=== PATIENT | male | born 1950 | race Caucasian/White ===

== ENCOUNTER → 2017-04-21 | Outpatient (CLI) | payer MEDICARE, OTHER ==
[~2017-04-21] MED LIST: BRILINTA90 MG PO; BUMETANIDE2 MG PO; CHLORTHALIDONE25 MG PO; CIPRO500 MG PO; DRISDOL 5050000 UNIT PO; FER-IRON DRO15 MG/ML PO; FLOMAX0.4 MG PO; JANUVIA 100 MG100 MG PO; LASIX40 MG PO; LEVEMIR FL100 UNIT/1 SUB-Q; LIPITOR40 MG PO; LOPRESSOR25 MG PO; MELATIN3 MG PO; MILK OF MA400 MG/5 M PO; MIRALAX17 GM PO; NITROSTAT0.4 MG SL; NORVASC10 MG PO; NOVOLIN-R100 UNIT/M SUB-Q; PLAVIX75 MG PO; POTASSIUM CHLO10 MEQ PO; PRINIVIL OR ZES10 MG PO; TUMS REGULAR ST1 TAB PO; TYLENOL325 MG PO; ZAROXOLYN5 MG PO
--- NOTE | ~2017-04-21 | ENPV ---
Carotid Duplex Study Demographics Patient Name JORGE L TALLEY Date of Study 04/21/2017 Patient Number [id number] Gender Male Date of 1950 Age 67 Visit Number [id number] Height Weight Number Room Number BSA BMI Referring Brandon Beltran MD Physician Physician Physician Ordering Flores [employer] Digital Sales Physician Giovanna MADDEN Psychiatric Clinical Nurse Specialist [facility], [facility] Conclusions Summary The right internal carotid artery has mild, 1-39%, plaque and stenosis. The left internal carotid artery has mild, 1-39%, plaque and stenosis. The bilateral vertebral arteries are patent and antegrade. The bilateral subclavian arteries are patent and biphasic. Procedure Type of Study: Cerebral:Carotid, Carotid Doppler Bilateral. Indications for Study:Pre op heart valve surgery. Appropriate Use Criteria:4 Allergies - Other:(BRENDEN Inhibitors.). Blood Pressure:Right arm 123/59 mmHg.Left arm 118/56 mmHg. Patient Status:Routine. Study Location:Vascular Lab. Technical Quality:Adequate visualization. Velocities are measured in cm/s ; Diameters are measured in cm Carotid Right Measurements Carotid Left Measurements + +--------+--------+ + + + +--------+ --------+ + + !Location !PSV !EDV !Angle !%Stenosis ! !Location !PSV ! EDV !Angle !%Stenosis ! + +--------+--------+ + + + +--------+ --------+ + + !Prox CCA !96 !24 !50 ! ! !Prox CCA !116 ! 29 !60 ! ! + +--------+--------+ + + + +--------+ --------+ + + !Dist CCA !89 !19 !60 ! ! !Dist CCA !110 ! 26 !58 ! ! + +--------+--------+ + + + +--------+ --------+ + + !Prox ICA !82 !17 !54 ! ! !Prox ICA !80 ! 26 !52 ! ! + +--------+--------+ + + + +--------+ --------+ + + !Dist ICA !64 !21 !58 ! ! !Dist ICA !74 ! 30 !52 ! ! + +--------+--------+ + + + +--------+ --------+ + + !Prox ECA !72 ! !42 ! ! !Prox ECA !98 ! 15 !52 ! ! + +--------+--------+ + + + +--------+ --------+ + + !Vertebral !73 ! !60 ! ! !Vertebral !33 ! !60 ! ! + +--------+--------+ + + + +--------+ --------+ + + !Subclavian !143 ! !54 ! ! !Subclavian !139 ! !58 ! ! + +--------+--------+ + + + +--------+ --------+ + + - Add'l Measurements:ICAPSV/CCAPSV 0.85.ICAEDV/CCAEDV 0.88. - Add'l Measurements:ICAPS V/CCAPSV 0.69.ICAEDV/CCAEDV 1.03. Signature dtt: BRIAN OKEEFE: 04/21/17 1448 Physician Self Edit
--- NOTE | ~2017-04-21 | PUL ---
PATIENT'S NAME: JORGE L TALLEY [facility] AGE: 67 Y [address] ROOM: [place] [address] LOCATION: [facility] ADMIT DATE: 04/21/2017 Pulmonary DISCHARGE DATE: FAMILY PHYSICIAN: Blake Taylor MD ATTENDING PHYSICIAN: BERTA ZAVALA NAME OF PROCEDURE: Pulmonary Function Test DATE OF PROCEDURE: April 21, 2017 TECH: AMINA Lopez REASON FOR EXAM: Aortic stenosis RESULTS: 1. Spirometry does not demonstrate airflow obstruction. There is no significant change post bronchodilator. 2. Diffusing capacity is mildly reduced but normal when adjusted for hemoglobin. 3. Lung volumes are normal. IVAN NINO MD /[id number] dtt: 05/09/17 0827 , Ivan Nino dtd: 04/25/17 1522
[2017-04-21 14:24] LABS: BICARBONATE 32.8 mmol/L (18.0-23.0); PCO2 44 mmHg (35-45); PO2 69 mmHg (80-90)
== END | disposition disaster alternative care site (69) ==
LOC: GRTH 12:32
PROVIDERS: Internal Medicine Interventional Cardiology
DX: I35.0 Nonrheumatic aortic (valve) stenosis (principal); I65.23 Occlusion and stenosis of bilateral carotid arteries

== ENCOUNTER 2017-04-28 05:40 | Inpatient (IN) | payer MEDICARE, OTHER ==
[~2017-04-28] VITALS: Ht 177.8 cm; Wt 118.7 kg
--- NOTE | ~2017-04-28 | CON ---
PATIENT'S NAME: JORGE L TALLEY [facility] AGE: 67 Y [address] ROOM: [address] [place], [place] [address] LOCATION: [facility]PCU ADMIT DATE: 04/28/2017 Consultation DISCHARGE DATE: 05/11/2017 FAMILY PHYSICIAN: Blake Taylor MD ATTENDING PHYSICIAN: Christiane Doss CORRECTED PATIENT ACCOUNT INFORMATION 05/19/2017 AO DATE OF CONSULTATION: 05/03/2017 REFERRING PHYSICIAN: REGGIE VEGA REFERRING PROVIDER: Ilda Dooley MD. REASON FOR CONSULTATION: Anemia. HISTORY OF PRESENT ILLNESS: This is a very pleasant 67-year-old gentleman, who was admitted on April 28, 2017. At that time, the patient was being evaluated and worked up for possible valve replacement per Cardiology for severe aortic stenosis. The patient was noted to have elevated creatinine and calcium with a creatinine level of 2.4 and calcium of 13.2. The patient was admitted for further evaluation. The patient's workup, the patient was found to have severe iron deficiency anemia. The patient's hemoglobin was 8.5, MCV was 68.1, hematocrit was 29.4, iron was 24, and TIBC was 397, and percent saturation of 6. The patient denies any evidence of known blood loss per his statement. He denies any hematemesis, bright red blood per rectum, or melena. 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 He did recall having a colonoscopy done 7 to 10 years ago and states that there was "beginning of polyps." He denies any history of upper endoscopy. The patient does state that at home he denied any abdominal pain, or chest pain or chest pressure. He does complain of some nausea. He also states that he has "heartburn" and takes "equate brand antireflux medicine at home." He also admits to taking numerous Tums per day. He currently denies any chest pain, chest pressure, shortness of breath, fever, chills, night sweats, or weight loss. PAST MEDICAL HISTORY: Hypertension, diabetes mellitus type 2, diastolic heart failure, coronary artery disease, peripheral vascular disease, and severe aortic stenosis. PAST SURGICAL HISTORY: Right BKA, appendectomy, tonsillectomy, and cholecystectomy. SOCIAL HISTORY: History of tobacco use with last cigarette 6 years ago. He seldom drinks and PATIENT'S NAME: JORGE L TALLEY [facility] AGE: 67 Y [address] 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 He denies any illicit drug use. FAMILY HISTORY: The patient's father from suicide and had depression. The patient's mother had brain aneurysm. ALLERGIES: BRENDEN INHIBITORS CAUSE SHORTNESS OF BREATH AND COUGH. CURRENT MEDICATIONS: Please refer to the medication administration record, significant for Plavix. REVIEW OF SYSTEMS: All point review of systems was completed. All were negative except for those identified in the History of Present Illness. PHYSICAL EXAMINATION: GENERAL: A very pleasant 67-year-old gentleman lying in bed, who appears to be in no acute distress. VITAL SIGNS: Temperature 100.5, pulse of 96, respirations of 18, blood pressure 119/57, and oxygen saturation is 96% on 2 L nasal cannula. SKIN: [place], warm, and dry. No jaundice. HEENT: Head is normocephalic and atraumatic. Pupils are equal, round, and reactive to light. Sclerae are clear, nonicteric. Oral mucosa is pink and moist. No thyromegaly. NECK: Soft and supple. CARDIOVASCULAR: Grade 2 systolic murmur heard on the right. ABDOMEN: Soft, nontender, and nondistended. Bowel sounds positive x4 quadrants. MUSCULOSKELETAL: No muscle weakness or atrophy. EXTREMITIES: No clubbing, cyanosis, or edema. Noted right BKA and some left venous stasis changing to the left lower extremity. NEUROLOGICAL: Grossly nonfocal. LABS AND DIAGNOSTICS: White blood cell count of 13.3, hemoglobin of 8.5, hematocrit of 29.4, MCV 68.1, and platelets of 202. Chemistry panel includes a glucose of 147, BUN of 18, creatinine 1.5, sodium 142, potassium of 3.3, chloride 106, and CO2 of 26. Iron of 24, TIBC of 397, and percent saturation of 6. Vitamin B12 at 320, folate of 19.7, ferritin low at 8.50, and TSH was 0.888. ASSESSMENT AND PLAN: Again, this is a very pleasant 67-year-old gentleman who was admitted with hypercalcemia as well as acute kidney injury discovered while undergoing workup for possible valve replacement for severe aortic stenosis. We were PATIENT'S NAME: JORGE L TALLEY [facility] AGE: 67 Y [address] ROOM: [place] [address] LOCATION: GPCU ADMIT DATE: 04/28/2017 Consultation DISCHARGE DATE: 05/11/2017 FAMILY PHYSICIAN: Blake Taylor MD ATTENDING PHYSICIAN: Christiane Doss asked to see in consultation for iron deficiency anemia. The patient also thought to have possible monoclonal gammopathy as the GI tract needs to be evaluated at this time. It was discussed with Dr. Ilda Dooley as well as Dr. Heredia from Cardiology, and we will go forth with an upper endoscopy and colonoscopy. The patient is on Plavix as this was discussed with the patient that if large polyps are seen, a possible repeat procedure may be completed to remove these as this will be more of diagnostic only. The patient will be given Suprep in preparation for the procedure. Procedures, risks, benefits, and alternatives were discussed with the patient per Dr. Fanta Reeves. Further recommendations to be given status post upper endoscopy and colonoscopy. CHARLA MELVIN, SUPERVISOR PRESSING DEPARTMENT FOR [employer] MD MMF/modl /[id number] CORRECTED PATIENT ACCOUNT INFORMATION 05/19/2017 AO d: 05/04/17 1201 t: 05/19/17 1419, CONSULTATION REPORT
--- NOTE | ~2017-04-28 | ECHO ---
Transesophageal Echocardiography Report (JAYME) Demographics Patient Name JORGE L TALLEY Date of Study 04/28/2017 Patient Number [id number] Visit Number [id number] Date of 1950 Room Number G6306 Gender Male Number Age 67 year(s) Referring Brandon Kohli MD Burnishing Machine Operator Adelita Guo [facility], Physician Flores Heredia RVT Physician Interpreting Flores Heredia Forensic Computer Examiner Physician MD Supervising Ordering Flores Heredia MD/MLP Physician MD Nurse Stress Development Manager Conclusions Summary Normal LV/RV size and systolic function. LVEF 55-60%. There is severe aortic stenosis, AV is severely calcific with restricted opening. There is mild aortic regurgitation by color Doppler. The aorta measures 3.6 cms at the level of sinuses and 2.[address] junction. LVOT measures about 2.6 cms. Procedure Type of Study JAYME procedure Procedure Date Date: 04/28/2017 Start: 07:05 AM Study Location: Inpatient Portable Technical Quality: Adequate visualization Indications:Aortic stenosis. Appropriate Use Criteria: 9 Patient Status: Routine HR: 87 bpm BP: 95/50 mmHg O2 Saturation: 94 % JAYME Performed By: the attending and the drawing kiln operator Type of Anesthesia: Moderate sedation Allergies - Other:(BRENDEN Inhibitors.). Findings Left Ventricle The left ventricle is normal in size . Mild concentric hypertrophy. Right Ventricle Normal right ventricular size and function. Left Atrium The left atrium is mildly dilated. There is no thrombus in the left atrial appendage. There is no evidence of patent foramen ovale or atrial septal defect by color Doppler. Right Atrium The right atrium is not dilated. Mitral Valve Normal mitral valve structure and function. Mild mitral regurgitation by color Doppler. Aortic Valve There is severe aortic stenosis, AV is severely calcific with restricted opening. There is mild aortic regurgitation by color Doppler. The aorta measures 3.6 cms at the level of sinuses and 2.[address] junction. LVOT measures about 2.6 cms. Tricuspid Valve Normal appearing tricuspid valve. Pulmonic Valve Normal pulmonic valve structure and function. 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 Contractility Score LV regional wall motion:(0-Non visualized 1-Normal 2-Hypokinesis 3-Akinesis 4-Dyskinesis 5-Aneurysm) Signature dtt: BERTA ZAVALA dtd: 04/28/17 0705 Physician Self Edit
--- NOTE | ~2017-04-28 | CATH ---
Cardiac Diagnostic Report Demographics Patient Name GERRI Arredondo Gender Male Date of 1950 Age 67 year(s) Patient Number [id number] Date of Study 05/01/2017 Visit Number [id number] Room Number G6[address] [place] [id number] Ht 177.8 cm Wt 110 kg Referring Brandon Kohli MD Primary Physician Physician Performing [facility] Secondary Physician Physician Giovanna MADDEN Diagnostic [facility] Assisting Physician Physician Giovanna MADDEN Interventional Physician Audit Intern Physician Findings and Conclusions Diagnostic Findings and Conclusion 1. Mild non-obstructive CAD. 2. Mid LAD stent patent. Diagnostic Recommendations Pigtail in distal aorta for CTA pelvis for TAVR workup. Continue medical therapy while awaiting TAVR. Will discuss case at [facility]. Patient will be observed overnight. Hydration and followup creatinine. Patient has been instructed to not lift anything more than 5 pounds for 1 week. Recommend aggressive risk factor modification. Aggressive medical therapy for coronary artery disease. Procedure Description The patient was brought to the diagnostic cardiac catheterization-EP laboratory in the fasting, non-sedated state. Informed consent was obtained in the written and verbal form after the risks and benefits were explained. The patient had no further questions and agreed to proceed. The planned puncture-incision site(s) were shaved and prepped with ChloraPrep and draped in the usual sterile manner. Conscious sedation, supplemental oxygen, and pain control medications were delivered by a registered nurse under physician guidance. Surface ECG rhythm, blood pressure measurement, and pulse oximetry were monitored throughout the procedure. Arterial access. The access site was infiltrated with lidocaine. The vessel was entered with the Seldinger technique. A sheath was advanced into the vessel and used for catheter placement. Selective left coronary angiography. A catheter was advanced into the left coronary vessel ostium under Fluoroscopic guidance. Contrast was injected by hand. Images were obtained in multiple projections. Selective right coronary angiography. A catheter was advanced into the right coronary vessel ostium under fluoroscopic guidance. Contrast was injected by hand. Images were obtained in multiple projections. Arterial artery hemostasis was achieved. The patient was transferred to a regular nursing floor via cart accompanied by a nurse. The patient left the laboratory in stable condition. Diagnostic Cath Status: Urgent Procedure Procedure Type Diagnostic procedure:Angiography:, Coronary Angios Indications: Non-ST elevation TN. The procedure was explained in detail to the patient. Risks, complications and alternative treatments were reviewed. Written consent was obtained. Medications Reviewed with Patient prior to Procedure. Angiographic Findings Dominance: Right Cardiac Arteries and Lesion Findings LMCA: Normal (0% Stenosis). LAD: There is a previous stent on Mid LAD Mid subsection. Lesion on Mid LAD: 10% stenosis . The lesion was previously treated on 04/30/2014 with the following techniques: drug eluting stent. This is in-stentrestenosis. Lesion on Prox LAD: Ostial.30% stenosis . LCx: Lesion on Prox CX: Ostial.30% stenosis . Lesion on Mid CX: 20% stenosis . Lesion on 1st Ob Kristy% stenosis . RCA: Lesion on Prox RCA: 20% stenosis . Coronary Tree Procedure Data Procedure Date Date: 05/01/2017Start: 12:24 PMEnd: 12:39 PM Entry Locations - Percutaneous access was performed through the Radial artery. Hemostasis was successfully obtained using Mechanical Compression. Closure Comments: R band to be deployed after CT by SHAHANA Angela.. Procedure Medications Order and Administration + + + +-------+ !Time !Medication !Dosage !Route ! + + + +-------+ !05/01/2017 12:07 PM !Versed !1 mg !I.V. ! + + + +-------+ !05/01/2017 12:08 PM !Fentanyl !25 mcg !I.V. ! + + + +-------+ !05/01/2017 12:08 PM !Oxygen !2 l/min !NC ! + + + +-------+ !05/01/2017 12:15 PM !Oxygen !4 l/min !NC ! + + + +-------+ !05/01/2017 12:26 PM !Radial Verapamil !2.5 mg !I.A. ! + + + +-------+ !05/01/2017 12:27 PM !Heparin (ACC_3) !5000 units !I.V. ! + + + +-------+ Devices Used - A5 Fr. BS JR 4 Diag. Catheterwas used for:Right coronary angiography. - A5 Fr. BS JL 3.5 Diag. Catheterwas used for:Left coronary angiography. Contrast Material - Isovue 38683 ml Fluoroscopy Time: Diagnostic: 4:12 minutes. Total: 4:12 minutes. Fluoroscopy Dose: Diagnostic: 600 mGy. Total: 600 mGy. Estimated Blood Loss: 10 ml. Medical History Performed Procedures and Imaging Results - No ACC stress or imaging studies were performed. Allergies - Other:(BRENDEN Inhibitors.). - Other:(BRENDEN Inhibitors). Risk Factors The patient risk factors include:prior PCI on 04/30/2014;hypertension, insulin-treated diabetes mellitus, last creatinine: 1.3 mg/dl, creatinine clearance: 83.44 ml/min, Current/Recent(w/in 1 year) tobacco use, prior heart failure and prior TN . Admission Data Admission Date: 04/28/2017 Admission Time: 01:30 PM Admit Source: Emergency department Insurance Payors: Medicare. Admission Medications + +------+-----+---------+---------+ + + !Medication !Dosage!Times!Last !Last !Administered !Comments ! ! ! !Per !Delivery !Delivery ! ! ! ! ! !Day !Date !Time ! ! ! + +------+-----+---------+---------+ + + !Aspirin (any) ! ! ! ! !Yes ! ! + +------+-----+---------+---------+ + + !Statin (any) ! ! ! ! !Yes ! ! + +------+-----+---------+---------+ + + !Clopidogrel ! ! ! ! !Yes ! ! + +------+-----+---------+---------+ + + !Unfractionated ! ! ! ! !Yes ! ! !Heparin (any) ! ! ! ! ! ! ! + +------+-----+---------+---------+ + + !Beta Jaleesa ! ! ! ! !Yes ! ! !(any) ! ! ! ! ! ! ! + +------+-----+---------+---------+ + + Clinical Evaluation Leading to Procedure - The patient's CAD presentation was assessed as: Non-STEMI. - The patient's anginal syndrome during the past two weeks was assessed as: Class IV according to the [place] Cardiovascular Society Classification System (CCS). Anti-anginal medications were prescribed during the past two weeks. The medications are: Beta Blockers and Ca channel Blockers. - The patient has been in a state of heart failure within the past two weeks. Hemodynamics Condition: Rest O2 Consumption: Estimated: 217.99Heart Rate: 17 bpm Pressures (mmHg) +-----+ + !Site !Pressure ! +-----+ + !AO !115/60 (83) ! +-----+ + Shunts Oxygen Values O2 Capacity 114.24 O2 Consumption 217.99 Signatures dtt: GIOVANNA ZAVALA dtd: 05/01/17 1224 Physician Self Edit
--- NOTE | ~2017-04-28 | CON ---
PATIENT'S NAME: JORGE L TALLEY [facility] AGE: 67 Y [address] ROOM: [address] [address] LOCATION: GPCU ADMIT DATE: 04/28/2017 Consultation DISCHARGE DATE: FAMILY PHYSICIAN: Blake Taylor MD ATTENDING PHYSICIAN: BERTA ZAVALA REFERRING PHYSICIAN: REGGIE MAE This is a consultation to Dr. Doss. HISTORY OF PRESENT ILLNESS: Jorge L Talley is a 67-year-old man with an uncharacterized iron-deficiency anemia, hypercalcemia, and elevated kappa/lambda ratio, who needs coronary artery catheterization and a left heart catheterization to evaluate aortic stenosis prior to a TAVR. The history of the present illness is from Mr. Talley, who is a fair historian; from review of the old and current [facility] chart; from Dr. Doss; and visits with colleagues. There may be some lacuna in my knowledge. Mr. Talley saw Dr. Galvan a month ago. It was a regular checkup. An echocardiogram was performed. Critical aortic stenosis was documented. Arrangements were made for performance of a coronary artery catheterization and a left heart catheterization. This blood work was drawn on 04/28/2017. To universal surprise and consternation, anemia and marked hypercalcemia were present. The INR was 0.99. The PTT was 22. The white count was 10,900 with 71% neutrophils, the hemoglobin was 9.8, the MCV was 69, and the platelets were 270,000. The CMS revealed the calcium was 13.2 mg/dL. The albumin was 3.3 g/dL. The globulin was normal at 3.8 g/dL. The glucose was 155 mg/dL. The EGFR was 27. The BUN was 55 mg/dL. The creatinine was 2.4 mg/dL. The patient was hospitalized and Dr. Mae was consulted. Dr. Mae discontinued the chlorthalidone and administered normal saline hydration. No other measures were employed to treat the hypercalcemia. The patient's calcium fell rapidly after chlorthalidone was discontinued and hydration was instituted and the calcium is currently 7.9 g/dL. The estimated GFR is currently 55 mL/m and elaine to 60 at one point. Laboratory was forwarded. A kappa free light chain level was 11.3 mg/dL. The lambda free light chain level was 2.24 mg/dL and a kappa/lambda ratio was elevated at 5. A serum protein electrophoresis revealed hypoalbuminemia. A spot urine protein electrophoresis, 24-hour urine protein electrophoresis, and 24-hour urine immunofixation electrophoresis are pending. A 25-hydroxy vitamin D level is 12 ng/mL. Tissue transglutaminase levels are pending. The ferritin was 8.5 ng/mL. The iron was 24 ug/dL, the TIBC 397 ug/dL, and the percentage saturation 6%. The IgA level was slightly elevated at 416 mg/dL, the IgG level was 995 mg/dL, and the IgM level was 11 mg/dL. The TSH is PATIENT'S NAME: JORGE L TALLEY [facility] AGE: 67 Y [address] ROOM: [id number] [place], [place] [address] [facility] ADMIT DATE: 04/28/2017 Consultation DISCHARGE DATE: FAMILY PHYSICIAN: Blake Taylor MD ATTENDING PHYSICIAN: BERTA ZAVALA within normal limits at 0.888 uIU/mL. The intact parathyroid hormone level was low at 2.4 pg/mL. The cholesterol is 89 mg/dL, the triglycerides 257 mg/dL, the HDL cholesterol 36 mg/dL, and the LDL 2 mg/dL. A CAT scan of the chest, abdomen, and pelvis was unremarkable except for the surgical absence of the gallbladder. There was mild perinephric edema on both sides of uncertain significance. This was a noncontrast scan. On CT angiography of the abdomen and pelvis on 05/01/2017, the distal aorta at the level of the pigtail catheter had a transverse measurement of 2.1 cm. The right common iliac was markedly tortuous. Just beyond the bifurcation it measured 1.6 cm. On 05/03/2017, the patient felt poorly and developed low-grade fever. Stool and blood cultures have been negative, but urine culture revealed greater than 100,000 Gram-negative rods. Currently, ID and miscellaneous susceptible testing is pending. Because the patient had a pronounced iron deficiency and provided a history of longstanding dyspepsia, treated with Tums endoscopy studies were recommended by Dr. Ramsay, who saw the patient in Gastrointestinal consultation. An upper GI endoscopy revealed an irregular Z-line with the Z-line starting at 39 cm and a peak of the salmon-colored mucosa tongue was present at about 36 cm. There was patchy erythema throughout the gastric body, antrum, and fundus. There was a small diaphragmatic hernia. Since the patient was on clopidogrel, no biopsy was performed. A colonoscopy revealed external hemorrhoids, but otherwise was entirely normal. No source of blood loss was seen on the exams. Small bowel workup and Hematology/Oncology workup was recommended if indicated. On 05/04/2017, a bone marrow aspiration and biopsy were performed. Flow cytometry is pending. Plasma cells were present. The bone marrow is polymorphous. No further conclusions are available at this point. It should be noted initially that Dr. Salcedo had to place a Marsh catheter because the patient had benign prostatic hypertrophy within the distal urethral stricture and the nursing staff was unable to place a Marsh catheter. Dr. Mae initially felt the hypercalcemia was uncharacterized. He was concerned the patient's Tums and chlorthalidone could have been influenced this, but was also concerned about the possibility of an underlying immunoproliferative disorder and/or solid tumor disorder. He recommended the slow volume expansion, which worked well. The patient is seen in consultation. Prior to admission, he lived alone in [place]. He is retired. He had no formal physical therapy or occupational PATIENT'S NAME: JORGE L TALLEY [facility] AGE: 67 Y [address] ROOM: [id number] [place], [place] [address] [facility] ADMIT DATE: 04/28/2017 Consultation DISCHARGE DATE: FAMILY PHYSICIAN: Blake Taylor MD ATTENDING PHYSICIAN: BERTA ZAVALA therapy program. The patient was able to walk 1 to 2 blocks. He was limited in walking due to back pain. He has experienced this back pain since he underwent a [id number]-[id number] amputation for a diabetic foot ulcer complicated with osteomyelitis in 2013. The back pain has not changed recently. The patient notices his physical stamina has decreased. He needs to rest more frequently. He produces a tablespoon of clear sputum daily. The patient is starting to restrict his activity. He has been anorexic for 6 months and has lost 31 pounds, some of which he attributes to his diet. Family members report he has been more pale in the last several months and the patient has experienced orthostatic dizziness and one fall due to disequilibrium. The patient acknowledges nocturia every 1-1/2 to 2 hours with some urinary hesitancy and dribbling. He does acknowledge taking 4 to 5 Tums a day "for ages." ACTIVE MEDICAL PROBLEMS, CHRONIC AND DIAGNOSED: 1. Right rotator cuff tear. 2. Essential arterial hypertension noted in 2008 in a checkup, which has not been labile. 3. Type 2 diabetes mellitus noted in 2000, when he presented with weight loss and polydipsia. 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 His latest glycosylated hemoglobin was 9% and his blood sugars usually run in the 130 to 230 mg/dL. The patient is on insulin. 4. Atherosclerotic heart disease leading to a [id number] DC in 2013. The LAD was 100% occluded and this is the vessel that was stented. 5. Atherosclerotic peripheral vascular disease, particularly the right common iliac as noted above. 6. Mild aortic regurgitation. 7. Severe aortic stenosis with a severely calcific aortic valve with a restricted opening noted on echocardiogram. 8. Tobacco use. The patient has smoked a pipe for 40 years, approximately 2 pipe fulls a day, but has abstained since 2010. 9. Benign prostatic hypertrophy with distal urethral stricture. 10. Hyperlipidemia. 11. Hypovitaminosis D. 12. Class II obesity, the BMI is 35.3 kg/m2. 13. Common migraine headaches, symptomatic with photophobia and vomiting. These resolved in 2002 following establishment of better diabetic control. 14. 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 15. Subjective decreased auditory acuity in the left ear. 16. Allergic rhinitis. 17. Gastroesophageal reflux disease, empiric diagnosis, and the patient has taken Tums [id number] for years. PATIENT'S NAME: JORGE L TALLEY [facility] AGE: 67 Y [address] ROOM: [address] [place] [address] [facility] ADMIT DATE: 04/28/2017 Consultation DISCHARGE DATE: FAMILY PHYSICIAN: Blake Taylor MD ATTENDING PHYSICIAN: BERTA ZAVALA ACUTE MEDICAL ILLNESSES (RESOLVED), PAST SURGERIES, INJURIES: 1. In 1957 - tonsillectomy. 2. In 1958 - appendectomy. 3. In 2009 - screening colonoscopy. 4. In 2011 - laparoscopic cholecystectomy. 5. In 2013 - coronary artery stenting of the left anterior descending artery following a [id number] DC. 6. In 2013 - right and left cataract extraction. 7. In 2013 - right BKA due to a right Charcot foot as a complication of diabetes and osteomyelitis. 8. In 2014 - urethral dilation. 9. In 2006 - surgical removal of a film from the right retina. MEDICATIONS UPON ADMISSION: 1. APAP. 2. Amlodipine 10 mg p.o. at bedtime. 3. Atorvastatin 40 mg p.o. at bedtime. 4. Bumetanide 2 mg p.o. q.24 hours. 5. Calcium carbonate 1 tablet p.o. t.i.d. 6. Chlorthalidone 25 mg p.o. q.24 hours. 7. Clopidogrel bisulfate 75 mg p.o. q.24 hours. 8. Insulin detemir 21 units subcu at bedtime and 36 units subcu q.a.m. 9. Regular insulin subcutaneously t.i.d. 10. Lisinopril 10 mg p.o. q.24 hours. 11. Metoprolol 25 mg p.o. b.i.d. 12. Nitroglycerin 0.4 mg sublingually p.r.n. 13. Polyethylene glycol 17 grams p.o. every 24 hours. 14. KCl 10 mEq p.o. daily. 15. Sitagliptin 100 mg p.o. q.24 hours. 16. Ticagrelor 90 mg p.o. daily. ADVERSE REACTIONS TO MEDICATIONS, TRANSFUSIONS, ALLERGIES: 1. Some BRENDEN inhibitors have been associated with shortness of breath. 2. The patient received 3 units of packed red blood cells with his BKA. TOBACCO: Two pipefuls a day for 40 years, abstained since 2010. ALCOHOL: 1. The patient has abstained from alcohol for one year. 2. After age 33 until 2016, the patient had one drink a week. 3. From age 19 to 33, the patient drank several beers on an evening 3 times a week. The patient experienced no adverse sequela from his alcohol intake. PATIENT'S NAME: JORGE L TALLEY [facility] AGE: 67 Y [address] ROOM: [place] [id number] [facility] ADMIT DATE: 04/28/2017 Consultation DISCHARGE DATE: FAMILY PHYSICIAN: Blake Taylor MD ATTENDING PHYSICIAN: BERTA ZAVALA CAFFEINE: 1. 4 to 5 cups of coffee a day. 2. 12 ounces of diet cola daily. IMMUNIZATIONS: Positive flu. Positive Pneumovax. Negative tetanus in the last 10 years. Positive varicella-zoster virus vaccine. FAMILY HISTORY: The patient's mother of tobacco related lung cancer at 62 and a maternal aunt of tobacco related lung cancer at 70. The patient's father at 64 of cancer, type unknown to the patient. SOCIAL HISTORY: The patient was born in [place], [place]. He was raised a [employer], [place]. He graduated from [employer] in 1970 with a degree in business administration. 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 He has retired for 2 years. The patient is a lifelong bachelor and attends the [employer]. REVIEW OF SYSTEMS: The patient may have had a growth on his left cheek. He intermittently snores. He was experiencing nocturia every 1-1/2 to 2 hours with some urinary hesitancy prior to admission and as noted, has eaten 4 to 5 times a day for many years. PHYSICAL EXAMINATION: VITAL SIGNS: Pulse 72 and regular, blood pressure 120/55, respiratory rate 16, temperature 98 degrees, height is 70 inches, weight 111.8 kg (246 pounds), and BMI 35.3 kg/m2. GENERAL: Well-developed, obese, 67-year-old male, in no acute distress. HEENT: The patient's teeth are in poor repair. LYMPH NODES: None palpable. NECK: Without JVD or carotid bruit. SKIN: Gomez angiomas. CHEST: Clear. CV: Regular rhythm with a grade 3/6 right upper sternal border radiating to the carotids and across the precordium. ABDOMEN: Healed horizontal right lower quadrant scar. No masses, tenderness, or megaly. GENITALIA AND RECTAL: Not examined. PATIENT'S NAME: GERRI JORGE L L [facility] AGE: 67 Y [address] ROOM: [id number] [place], [place] [address] [facility] ADMIT DATE: 04/28/2017 Consultation DISCHARGE DATE: FAMILY PHYSICIAN: Blake Taylor MD ATTENDING PHYSICIAN: BERTA ZAVALA EXTREMITIES: Right BKA and left pretibial hemosiderosis. Pulses 2+ throughout. NEURO: Cranial nerves II through XII intact. Strength 5/5 throughout. Deep tendon reflexes not tested. IMPRESSION: 1. The plot has thickened considerably over the days as the workup has returned. 2. Microcytic anemia, largely, or completely, due to iron deficiency. 3. Uncharacterized iron-deficiency at this point. In light of the negative endoscopy studies and 2 negative Hemoccult stools to date and the absence of any history of hematochezia or melena, I suspect it most likely that Mr. Talley has occult gastrointestinal bleeding due to arteriovenous malformations to which he was predisposed by his severe aortic stenosis. If this is the case, the arteriovenous malformations may improve with therapy. 4. Elevated kappa/lambda ratio with slight elevation in IgA and slight fall in IgM. The patient may well have monoclonal gammopathy of undetermined significance, smoldering myeloma, or even active multiple myeloma contributing to the initial hypercalcemia and the renal insufficiency. This seemed unlikely initially since it was possible to correct the hypercalcemia and renal insufficiency with simple hydration, and the patient's consumption of Tums and use of chlorthalidone were risk factors for hypercalcemia. However, the bone marrow aspiration and biopsy may well an immunoproliferative disorder of some kind. 5. Severe aortic stenosis. Given the results of the evaluation so far, if it is important to perform the surgery with dispatch, there is no need not to. I would defer to Dr. Galvan and Dr. Mae's judgment as to how essential it is to do coronary artery catheterization and left heart catheterization at this point and how safe it is. However, if it is important to perform the TAVR, it is reasonable to do it at this point. There is no sign or reason to believe he is at high risk for major gastrointestinal bleed. It is not clear we will document multiple myeloma. If we do document multiple myeloma, it may be smoldering multiple myeloma. If he has active multiple myeloma, it is a treatable disease and his hypercalcemia is well controlled. PLAN - DIAGNOSTIC: Follow up on bone marrow aspiration and biopsy results. TREATMENT: 1. Ferrous sulfate 325 mg p.o. 15 to 30 minutes prior to meals on an empty stomach t.i.d. 2. TAVR if needed. Coronary artery catheterization and left heart catheterization per Dr. Galvan and Dr. Mae. PATIENT'S NAME: JORGE L TALLEY [facility] AGE: 67 Y [address] ROOM: [place] [address] LOCATION: [facility] ADMIT DATE: 04/28/2017 Consultation DISCHARGE DATE: FAMILY PHYSICIAN: Blake Taylor MD ATTENDING PHYSICIAN: BERTA ZAVALA PATIENT EDUCATION: Discussed the differential diagnosis of his numerous medical problems and the rationale for these tasks. MD SOLEDAD COLONB/modl /[id number] CC: MD Blake Pimentel MD Anuradha Tunuguntla, MD Scott F Howe, MD Abhisekh Sinha Ray, MD d: 05/05/17 2351 t: 05/11/17 1825, CONSULTATION REPORT
--- NOTE | ~2017-04-28 | CON ---
PATIENT'S NAME: JORGE L TALLEY [facility] AGE: 67 Y [address] ROOM: [id number] [place], [place] [address] LOCATION: GPCU ADMIT DATE: 04/28/2017 Consultation DISCHARGE DATE: FAMILY PHYSICIAN: Blake Taylor MD ATTENDING PHYSICIAN: BERTA ZAVALA DATE OF CONSULTATION: 04/29/2017 REFERRING PHYSICIAN: REGGIE VEGA REASON FOR CONSULTATION: Urinary retention and nurse is unable to place Marsh secondary to urethral stricture. HISTORY OF PRESENT ILLNESS: This is a 67-year-old gentleman admitted yesterday. He was found to have acute on chronic renal failure. Creatinine was up to 2.4. He underwent recent cardiac evaluation. He has multiple comorbidities and contributors. He has long-standing insulin- dependent diabetes with poor control and complications (amputations, vascular disease, etc.) On review, he has also had some urologic exposure. He has been seen in our office. He thinks he saw Dr. Rowe. We will check those records. He tells me he is having significant voiding symptoms. He has frequency. He has a very poor stream. He is going at least hourly at night. As noted, his creatinine was 2.4 at admission. With hydration and supportive care, he is back down to 1.8, which was his most recent outpatient level. He had a level of 1.8 reported in February. His residual last night was over 500 mL. He has been able to void 1000 mL through the night. Residual this morning was over 400 mL. He feels full. We will therefore go ahead and place a catheter. PHYSICAL EXAMINATION: EXTREMITIES: He has the right amputation. He has brawny induration and edema of his left lower extremity. EXTERNAL GENITALIA: Appear normal. ABDOMEN: Obese, but benign. I prepped and draped him. I gently probed with a catheter. Indeed, he has a distal stricture. It is likely in the fossa navicularis. He has obviously had multiple catheterizations with all of his previous surgical interventions. PATIENT'S NAME: JORGE L TALLEY [facility] AGE: 67 Y [address] ROOM: [id number] [place], [place] [address] LOCATION: GPCU ADMIT DATE: 04/28/2017 Consultation DISCHARGE DATE: FAMILY PHYSICIAN: Blake Taylor MD ATTENDING PHYSICIAN: BERTA ZAVALA I dilated his distal stricture. He tolerated that fine. I then placed an 18- [place] Coude catheter. We had copious and clear return. I would recommend that we add an alpha angelina considering his underlying symptoms. We will leave his Marsh in until all of his acute issues have been addressed and resolved. IMPRESSION: 1. Urinary retention. 2. Benign prostatic hypertrophy bladder outlet obstruction with frequency, urgency, nocturia, as well as poor stream. 3. Distal urethral stricture. 4. Chronic renal insufficiency. RECOMMENDATIONS: As above. Thank you for the consultation. KEESHA YBARRA MD SF/modl /[id number] CC: Blake Taylor MD d: 04/29/17 0857 t: 05/09/17 0634, CONSULTATION REPORT
--- NOTE | ~2017-04-28 | DS ---
PATIENT'S NAME: JORGE L TALLEY [facility] AGE: 67 Y [address] ROOM: [address] [address] LOCATION: GPCU ADMIT DATE: 04/28/2017 Discharge Summary DISCHARGE DATE: 05/11/2017 FAMILY PHYSICIAN: Blake Taylor MD ATTENDING PHYSICIAN: Giovanna Tanner FINAL DIAGNOSES: 1. Acute kidney injury on stage 3 chronic kidney disease. 2. Hypercalcemia. 3. Severe aortic stenosis. 4. Monoclonal gammopathy versus multiple myeloma. 5. Iron deficiency anemia. 6. Urinary tract infection, secondary to Enterococcus faecalis. 7. Diabetes mellitus type 2, insulin using. 8. Iatrogenic volume overload. 9. Right shoulder pain. 10. Vitamin D deficiency. PROCEDURES: 1. He had a left heart catheterization with Dr. Galvan on May 01, 2017. 2. EGD and colonoscopy with Dr. Ramsay on May 04, 2017. 3. Bone marrow biopsy with Dr. Salazar. REASON FOR ADMISSION: The patient had presented to have a heart catheterization and evaluation for TAVR procedure for his severe aortic stenosis. On admission, he was noted to be in acute renal failure with a creatinine at 2.4 and his calcium was noted to be 13.2. Heart catheterization was canceled and the patient was admitted. LABORATORY DATA: On admission, sodium 140, potassium 3.6, chloride 100, CO2 of 33, calcium 13.2, BUN 55, creatinine 2.4, alkaline phosphatase 45, AST 22, ALT 26, cholesterol 89, HDL 36, LDL of 2. His calcium did after treatment trended downward and then remained in the 7-8 range prior to discharge. On second hospital day, his creatinine was down to 1.8. His creatinine stayed in the 1.3-1.7 range during the hospital stay. Pre-albumin on the was nine. Cardiac enzymes obtained on admission did show that his troponin was mildly elevated with values of 0.083, 0.089, and 0.091. His iron was 24. Total iron binding capacity was 397. Percent saturation was 6. TSH was 0.88. Parathyroid hormone was 2.4. Folate was 19.7. B12 was 320. His IgA was 416, IgG 995, IgM 11. Hemoglobin A1c 7.4 on admission. On admission, his white blood cell count was 20, most prior to discharge it was 7.7. Hemoglobin on admission was 11.3, did gradually decline; most prior to discharge, it was 7.5. Platelet count remained stable, most prior to discharge, it was 188. Immunophoresis did show that he had significant kappa of 11.3. 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 Vitamin D25 was 12. Vitamin PATIENT'S NAME: JORGE L TALLEY [facility] AGE: 67 Y [address] ROOM: [id number] [place], [place] [address] LOCATION: GPCU ADMIT DATE: 04/28/2017 Discharge Summary DISCHARGE DATE: 05/11/2017 FAMILY PHYSICIAN: Blake Taylor MD ATTENDING PHYSICIAN: Giovanna Tanner 125 was less than 5. CULTURE DATA: Urine culture obtained on May 04 showed greater than 100,000 Klebsiella pneumoniae and Enterococcus faecalis. X-RAY DATA: Chest x-ray on admission did not show any evidence of congestive heart failure. CT scan of the abdomen and pelvis on April 30 showed his lungs to be clear. Heart size was mildly enlarged. No adenopathy. He did not have any ascites. There did not appear to be any structural abnormalities. CTA done for evaluation for TAVR showed a distal aorta at the level of the pigtail catheter. It was transverse, measurement was 21 mm. His external iliacs were normal in caliber in size. Chest x-ray, most prior to his discharge showed some mild vascular. CARDIOVASCULAR DATA: Echocardiogram done on admission showed that he had an EF of 55% to 60%. He had severe aortic stenosis. HOSPITAL COURSE: The patient had presented for an outpatient catheterization as part of an evaluation for TAVR procedure. He was due to have CTA of the pelvis, carotid ultrasound, and pulmonary function tests. He was noted to be hypercalcemic and in acute renal failure. The patient was admitted by Dr. Galvan. The patient was seen by Nephrology, and hospitalists were asked to see the patient. Hypercalcemia workup was done including vitamin D and parathyroid hormone. A serum protein electrophoresis and urine protein electrophoresis as well as light chains were ordered. Marsh catheter was placed. He was put on some of his at home Levemir doses and put on sliding scale insulin. Urology was asked to see him because there was difficulty placing a Marsh catheter. With hydration, his calciums did begin to come down. His creatinine did slowly improve as well. There was concern for us what the cause of the calcium was. There was concern that it could be a milk alkali syndrome. Other thought that he may have a cancer. CT scan of the abdomen and pelvis was done to evaluate as well as his chest. No source was found. The serum protein electrophoresis and urine protein electrophoresis were obtained. There was some concern that he may have multiple myeloma. He was noted to have iron deficiency anemia. GI was asked to see him and did proceed with an EGD and colonoscopy. His vitamin D values returned low. He was started on vitamin D replacement. Dr. Ramsay did feel that he would benefit from an EGD and colonoscopy. He was eventually able to get his heart catheterization done and a pigtail catheter was placed. Dr. Cortez was asked to see the patient because of monoclonal gammopathy. He was having difficulty with eating and just not feeling very well as well as not sleeping. He was tried on melatonin and Remeron. Dr. Cortez did see him and did order further studies as well as iron replacement. He was having constipation, so was given PATIENT'S NAME: JORGE L TALLEY [facility] AGE: 67 Y [address] ROOM: [place] [address] LOCATION: GPCU ADMIT DATE: 04/28/2017 Discharge Summary DISCHARGE DATE: 05/11/2017 FAMILY PHYSICIAN: Blake Taylor MD ATTENDING PHYSICIAN: Giovanna Tanner. He did have a low-grade fever, so blood cultures were obtained as well as a UA. UA did grow bacteria; however, he was not symptomatic. After discussion with Oncology with concern for potential cancer, decision was made to go ahead and treat him. He did undergo the EGD and colonoscopy with Dr. Ramsay. Please see the reports for full details. There was really no evidence for ongoing blood loss. It was felt that he would need a capsule endoscopy as an outpatient as the workup for myeloma continued including quantitative immunoglobulin. Eventually, the decision was made for the patient to have a bone marrow biopsy which was performed by . We did continue to monitor him. As time went on, he began to feel much better. PT and OT did work with him. His strength improved. Initial thought was that he would have to go to a skilled setting; but as time went on, actually his strength improved. We did work very aggressively to get his bowels working. When it was felt that we had sufficient return on the bone marrow results, the patient was allowed to return home. It was discussed with him whether to have Home Health, and he wanted to be able to go play cards and not be homebound. DISCHARGE INSTRUCTIONS: He is discharged to home. He is to see Dr. Mae on May 17, at 12:30; Dr. Eric Cortez on May 29 at 11 a.m.; Dr. Wilberto Rowe on June 12 at 2:45; Dr. Galvan in [place] on June 15, 2017. DISCHARGE MEDICATIONS: Include: 1. Lopressor 25 mg twice daily. 2. Amlodipine 10 mg daily. 3. Lipitor 40 mg daily. 4. Three units of regular insulin subcu 3 times daily and his sliding scale that he was on before he came. 5. Sitagliptin 100 mg daily. 6. Potassium 40 mEq daily. 7. Levemir 36 units in the morning, 21 units at night. 8. Plavix 75 mg daily. 9. MiraLAX 34 g twice daily. 10. Nitroglycerin 0.4 mg sublingual as needed. 11. Tylenol 650 mg every 6 hours as needed. 12. Cipro 500 mg twice daily. Doses will stop on May 12. 13. Lasix 40 mg a day. 14. Melatonin 3 mg at bedtime. 15. Metolazone 5 mg 30 minutes before his Lasix. 16. Flomax 0.4 mg at bedtime. 17. Vitamin D 50,000 units every Monday for 6 weeks. 18. Ferrous sulfate 15 mg 3 times daily. 19. Milk of magnesia 30 mL daily as needed. Dr. Galvan will be in contact with the oncologist and following those results. When it was felt that it was safe, he will be set up for his TAVR procedure. PATIENT'S NAME: JORGE L TALLEY [facility] AGE: 67 Y [address] ROOM: [place] [address] LOCATION: GPCU ADMIT DATE: 04/28/2017 Discharge Summary DISCHARGE DATE: 05/11/2017 FAMILY PHYSICIAN: Blake Taylor MD ATTENDING PHYSICIAN: Giovanna Tanner ASHLEY LEYVA MD LAW/modl /[id number] CC: MD BIJAN EtienneENCOM[facility] MD Eric Saba MD d: 05/12/17 0315 t: 05/17/17 1044, DISCHARGE SUMMARY
--- NOTE | ~2017-04-28 | LTR ---
PATIENT'S NAME: JORGE L TALLEY [facility] AGE: 67 Y [address] ROOM: [id number] [place], [place] [address] LOCATION: GPCU ADMIT DATE: 04/28/2017 Letter DISCHARGE DATE: 05/11/2017 FAMILY PHYSICIAN: Blake Taylor MD ATTENDING PHYSICIAN: Giovanna Tanner May 11, 2017 Re: JORGE L TALLEY Dear Dr. Taylor: I saw your patient, Jorge L Talley, in Hematology consultation while he was hospitalized at the [facility]. The initial Hematology Oncology consultation was dictated on May 05, 2016, and I trust you have that. Since that consult was dictated some more informative lab has returned and the initial bone marrow report has returned although the bone marrow cytogenetics by fluorescent in situ hybridization is still pending. The patient's hypercalcemia has not recurred. Risk factors for this included his chlorthalidone and his antacid consumption. His EGFR was 40 mL/h at the time of his discharge, so the patient does have some chronic kidney disease. The patient had an asymptomatic bacteriuria with greater than 100,000 Klebsiella pneumonia and Enterococcus faecalis. This was felt to be related to his catheter. His catheter was removed. He was placed on ciprofloxacin. The patient's 24-hour urine for immunofixation electrophoresis returned. There was no evidence of monoclonal protein. The patient did still have 456 mg of protein over 24 hours. The 25-hydroxyvitamin D level returned and it was decreased at 12. The patient has hypovitaminosis D. The patient's tissue transglutaminase antibody returned and was not elevated. This makes the low chance of malabsorption from celiac disease even lower. This was obtained because the patient's Hemoccult stools were negative x3 and the patient clearly has an iron deficiency anemia. The bone marrow aspiration and biopsy report returned. Conventional cytogenetics was unremarkable. The patient had absent iron stores. There was a minute kappa-restricted B-cell population (0.15%) by flow cytometry and a minute kappa-restricted plasma cell population (0.05%) by flow cytometry. By laboratory and bone marrow, there is no evidence the patient has an immunoproliferative disorder leading to his anemia, renal insufficiency, and hypercalcemia. Indeed, there is no evidence the patient even has a monoclonal gammopathy of undetermined significance. We will see the patient to review his cytogenetics by FISH in the office. If those are unremarkable, the patient would need no Hematology-Oncology followup, and you would just have to PATIENT'S NAME: JORGE L TALLEY [facility] AGE: 67 Y [address] ROOM: [id number] [place], [place] [address] [facility] AD[facility] DATE: 04/28/2017 Letter DISCHARGE DATE: 05/11/2017 FAMILY PHYSICIAN: Blake Taylor MD ATTENDING PHYSICIAN: Giovanna Tanner supervise his iron replacement for his straightforward iron deficiency anemia. My understanding is the patient will see Dr. Giovanna Tanner for further recommendations regarding treatment of the aortic stenosis in the future. The patient will see Dr. Mae for followup of his chronic kidney disease. If you have any questions about Mr. Talley's care in our hospital for his previously uncharacterized anemia, please call or write. Sincerely, Eric Cortez MD GKB/modl /[id number] CC: MD Bipin Miguel MD Anuradha Tunuguntla, MD Gregory M Kloch, MD Arif A Nawaz, MD
--- NOTE | ~2017-04-28 | HP ---
PATIENT'S NAME: JORGE L TALLEY [facility] AGE: 67 Y [address] ROOM: [address] [address] [facility] AD[facility] DATE: 04/28/2017 History & Physical DISCHARGE DATE: FAMILY PHYSICIAN: Blake Taylor MD ATTENDING PHYSICIAN: BERTA ZAVALA DATE OF SERVICE: CHIEF COMPLAINT: Hypercalcemia. HISTORY OF PRESENT ILLNESS: The patient is a 67-year-old gentleman with past medical history of CAD, status post PCI, peripheral vascular disease, severe aortic stenosis, who presents here with hypercalcemia. The patient was initially scheduled for left heart catheterization for evaluation of aortic stenosis. However, the patient was noted to have elevated creatinine and calcium on preop labs. The patient was noted to have a creatinine of 2.4 and a calcium of 13.2. The patient reports that for the past few days, he has been experiencing polyuria and feels his mouth is dry, without mention of dysuria. The patient reports that he takes Tums 5 to 6 times a day for a few days. The patient also reports back pain. It has been going on for few months. The patient also reports weight loss in the past month and reports that he has lost close to 24 pounds. The patient has a distant history of smoking. He stopped smoking 6 years ago. He denies night sweats, productive cough, shortness of breath, fever, chills, abdominal pain, nausea, vomiting, vision change, motor and sensory dysfunction. The patient also reports that for the past week or so, he has been having watery diarrhea and denies any bloody stool. The patient lives by himself and does not have kids or . PAST MEDICAL HISTORY: Hypertension; diabetes mellitus type 2; diastolic heart failure; coronary artery disease; peripheral vascular disease; aortic stenosis, severe. PAST SURGICAL HISTORY: Right BKA, appendectomy, tonsillectomy, and cholecystectomy. FAMILY HISTORY: Father from suicide and had depression. Mother had brain aneurysm. SOCIAL HISTORY: History of tobacco use. Last smoked 6 years ago. 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 MEDICATIONS: PATIENT'S NAME: JORGE L SRINIVASAN [facility] AGE: 67 Y [address] ROOM: [place] [address] LOCATION: GPCU ADMIT DATE: 04/28/2017 History & Physical DISCHARGE DATE: FAMILY PHYSICIAN: Blake Taylor MD ATTENDING PHYSICIAN: BERTA ZAVALA 1. Tylenol. 2. Amlodipine. 3. Lipitor. 4. Bumetanide. 5. Calcium carbonate. 6. Chlorthalidone. 7. Plavix. 8. Insulin, 36 units of detemir in the morning and 21 units at night. He also is on sliding scale insulin with Novolin. 9. Lisinopril. 10. Lopressor. 11. Nitroglycerin. 12. Potassium chloride. 13. Januvia. REVIEW OF SYSTEMS: All systems have been reviewed and are negative except for what I mentioned in the HPI. PHYSICAL EXAMINATION: VITAL SIGNS: Temperature 98.4, blood pressure 127/58, heart rate of 61, respiratory rate 14, and saturating 94% on room air. HEAD: Normocephalic, atraumatic. EYES: Extraocular muscle intact. NOSE: No nasal discharge. EARS: No ear discharge. MOUTH: Dry oral mucosa. CHEST: Bibasilar rales. HEART: Grade 2 systolic murmur heard on second intercostal right. No extra heart sounds heard. ABDOMEN: Soft, nontender, and nondistended. Bowel sounds present. EXTREMITIES: Right BKA and left venous stasis change in left lower extremity. SKIN: Warm to touch with left lower extremity venous stasis. RADIOLOGY ASSISTANT: Alert and oriented x3. Motor and sensory grossly intact. LABORATORY DATA: CO2 of 33, calcium of 13.2, potassium of 3.6, creatinine of 2.4, BUN of 55, glucose of 155. CBC shows hemoglobin of 9.8, platelet of 270, and white blood cell count of 10.9. ASSESSMENT AND PLAN: 1. Acute kidney injury: The patient with a history of hypertension, diabetes, coronary artery disease, and aortic stenosis, who presents here PATIENT'S NAME: JORGE L TALLEY [facility] AGE: 67 Y [address] ROOM: [place] [address] LOCATION: GPCU ADMIT DATE: 04/28/2017 History & Physical DISCHARGE DATE: FAMILY PHYSICIAN: Blake Taylor MD ATTENDING PHYSICIAN: BERTA ZAVALA with acute kidney injury on pre left heart catheterization evaluation. Etiology most likely secondary to hypercalcemia and due to diuresis secondary to hypercalcemia. We will treat the patient with IV fluid hydration. Continue current IV fluids treatment of 2 L IV fluid bolus and 150 mL/h. The patient has a history of aortic stenosis. We will watch the patient clinically for decompensated heart failure, and we will treat underlying etiology of hypercalcemia. 2. Hypercalcemia. The patient presents with calcium of 13. Etiology most likely secondary to milk of magnesia, secondary to aggressive Tums use at home versus hyperparathyroidism versus malignancy. The patient has a history of recent weight loss close to 24 pounds and also reports history of tobacco use. This puts the patient at some risk for malignancy, and also the patient reports back pain, and CBC shows anemia. Thus, we will work the patient for multiple myeloma. We will acquire UPEP, SPEP, and free light chain level. We will also work for hyperparathyroidism with PTH intact, and we will also evaluate for malignant PTH-related peptide. Chest x-ray done, shows no signs of mass. We will follow the patient closely. We will continue IV fluids and then daily renal function panel. Nephrology is on board. I discussed case with Dr. Mae. To continue with current treatment. 3. Dehydration. Continue IV fluid. 4. Diabetes mellitus type 2. The patient reports that he uses detemir 36 in the morning and 21 at night and reports recent history of hypoglycemia. Therefore, we will cut down detemir use to 20 b.i.d. and follow the patient closely. We will hold Januvia. We will start the patient on sliding scale insulin. 5. Hypertension. Continue amlodipine. We will hold lisinopril. 6. History of coronary artery disease, status post PCI. Continue Plavix and aspirin. 7. Anemia. Shows microcytic anemia with MCV of 68.7 and hemoglobin 9.8. We will work up for iron-deficient anemia. We will acquire iron level, ferritin, TIBC, and reticulocytes. 8. Peripheral vascular disease, continue antiplatelet and statin. 9. Severe aortic stenosis. The patient denies decompensated heart failure, syncope, and chest pain. Cardiology is on board. The patient is followed by Cardiology. To have coronary angiogram done when the patient is stable from kidney standpoint. I have personally reviewed the patient's medical record including but not limited to, blood work and radiology report. Total time spent with the patient is greater than 70 minutes. More than 50% of the time is spent in direct patient care and patient consultation. Case was reviewed with the patient. All questions were answered to the patient's satisfaction. Case was reviewed with Dr. Galvan and Dr. Mae. The patient's code status on admission is full code. PATIENT'S NAME: JORGE L TALLEY [facility] AGE: 67 Y [address] ROOM: [place] [address] [facility] AD[facility] DATE: 04/28/2017 History & Physical DISCHARGE DATE: FAMILY PHYSICIAN: Blake Taylor MD ATTENDING PHYSICIAN: BERTA ZAVALA RICH MD KENNY ELIZONDO/modmarissa /[id number] D: [id number] T: [id number] HISTORY & PHYSICAL
--- NOTE | ~2017-04-28 | CON ---
PATIENT'S NAME: JORGE L [facility] AGE: 67 Y [address] ROOM: [id number] [place], [place] [address] LOCATION: GPCU ADMIT DATE: 04/28/2017 Consultation DISCHARGE DATE: FAMILY PHYSICIAN: Blake Taylor MD ATTENDING PHYSICIAN: GIOVANNA ZAVALA DATE OF CONSULTATION: 04/28/2017 REFERRING PHYSICIAN: REGGIE VEGA REFERRING PHYSICIANS: Romario Grande MD and Giovanna Zavala MD. CHIEF COMPLAINT: NOAM on CKD and hypercalcemia. HISTORY OF PRESENT ILLNESS: A 67-year-old male patient with history of hypertension; diabetes; diastolic heart failure; significant aortic stenosis; peripheral vascular disease, status post right BKA; coronary artery disease, status post stenting; and CKD stage 3, came for transesophageal echocardiogram and possible left heart catheterization in context of aortic stenosis by Dr. Zavala, found to have a creatinine of 2.4 on routine lab test with a calcium of 13.2. Nephrology consultation has been called for this above-mentioned reason. As per the old record, the creatinine in our system is 0.9-1.19 dated back in 2013. Since then, I do not have many more lab results, but more recently in Dr. Taylor's office at [place], [place], his creatinine was 1.4 in November 2016 and 1.8 in February 2017. However, he has never seen a jeep mechanic in the past. His diabetes appears to be uncontrolled with most recent A1c being 9, it was even higher in the past. His blood pressure is also not adequately controlled. He never has had any history of hypercalcemia, no family history of hypercalcemia in the past; however, the patient takes Tums almost incessantly and also on chlorthalidone which also may cause hypercalcemia. In terms of symptoms, the patient denied any significant chest pain, shortness of breath, orthopnea, or PND. The patient actually appears to be slightly dry and complained of some mouth dryness and mucosal dryness for the last couple of days. He denies any muscle twitching, convulsion, or any other neurological symptoms. Appears to be alert, oriented, and conversant. No urinary symptoms including dysuria, urgency, hesitancy, or nocturia. REVIEW OF SYSTEMS: GENERAL: No fever. No chills or rigor. HEENT: No sore throat. No sinus congestion. CVS: No chest pain. No exertional shortness of breath. No leg swelling. RESPIRATORY: No shortness of breath. No cough. No wheezing. GENITOURINARY: No pain with urination. No increased frequency. No nocturia. GASTROINTESTINAL: No abdominal pain. No abdominal distention. No nausea or vomiting. NEUROLOGIC: No weakness. No seizures. SKIN: No rash. No itching. ALLERGIES: No seasonal allergy. No hayfever. ENDOCRINE: No heat intolerance. No cold intolerance. PSYCHIATRIC: No sadness. No crying spells. No history of panic attack.PATIENT'S NAME: J[facility]GE L [facility] AGE: 67 Y [address] ROOM: [id number] [place], [place] [address] [facility] ADMIT DATE: 04/28/2017 Consultation DISCHARGE DATE: FAMILY PHYSICIAN: Blake Taylor MD ATTENDING PHYSICIAN: GIOVANNA ZAVALA PAST MEDICAL HISTORY: 1. Hypertension. 2. Diabetes. 3. Diastolic heart failure. 4. Aortic stenosis. 5. Peripheral vascular disease, status post BKA. 6. Coronary artery disease, status post stenting. PAST SURGICAL HISTORY: Appendectomy, tonsillectomy, and cholecystectomy. FAMILY HISTORY: Dad of suicide. Mother had brain aneurysm. No history of diabetes, hypertension, or kidney disease in the family. SOCIAL HISTORY: He is an ex-smoker, he used to smoke almost a pack a day, stopped about 6 years back. He is not . Used to work in the [employer], currently retired. LABORATORY EVALUATION: CBC: WBC 10.9, hemoglobin 9.8, and platelets 270. Chemistry: Serum sodium 140, potassium 3.6, chloride 100, bicarbonate 33, calcium 13.2, BUN 55, creatinine 2.4, and glucose 155. Total protein 7.1, albumin 3.3. Liver function tests within normal limits. GFR 27. Lipid panel: Cholesterol 89, triglycerides 257, HDL 36, VLDL 51, LDL 82. INR is 0.99. PHYSICAL EXAMINATION: VITAL SIGNS: Blood pressure 150s over 60-70, pulse 60s to 70s, respiratory rate 18, and temperature 98.4. GENERAL: Not in apparent distress. HEAD: Dry mucous membrane. Bilateral PERRLA. NECK: No JVD, thyromegaly, or lymphadenopathy. CVS: S1, S2 plus regular rate. Ejection systolic murmur. CHEST: Bilateral air entry equal. No wheeze or rales. ABDOMEN: Soft, nontender, nondistended. Bowel sounds present. EXTREMITIES: No cyanosis, clubbing, or jaundice. No dependent edema. Right BKA. MUSCULOSKELETAL: No limitation of range of motion. SKIN: No pallor, cyanosis, or icterus. TRIPOLER: Alert and oriented x3. No gross findings. PATIENT'S NAME: J[facility]GE L [facility] AGE: 67 Y [address] ROOM: [place] [id number] LOCATION: GPCU ADMIT DATE: 04/28/2017 Consultation DISCHARGE DATE: FAMILY PHYSICIAN: Blake Taylor MD ATTENDING PHYSICIAN: GIOVANNA ZAVALA ASSESSMENT/PLAN: 1. Acute kidney injury on chronic kidney disease versus chronic kidney disease progression. Creatinine was in the normal range in 2013, but more recently is in the 1.4-1.8 range, however, today is 2.4. With the patient appears to be significantly dry, possibly prerenal versus hemodynamic acute tubular necrosis. We will slowly volume expand the patient, especially in context of hypercalcemia. We will give couple of liters of normal saline bolus followed by 150 mL/h. Ejection fraction appears to be normal on today's JAYME; however, the patient has significant . We will closely monitor the patient's clinical status for any signs of volume overload. We will place a Marsh and maintaining strict intake with output, daily standing weight. We will send UA and urine lytes including sodium, potassium, creatinine, calcium, and osmolality, and also check for protein to creatinine ratio. Avoid nephrotoxins and avoid hemodynamic insult from maintaining MAP more than 65. Regarding his CKD, it appears to be contributed from his long-standing uncontrolled diabetes and hypertension. Last creatinine in February 2016 was 1.8; however, we do not know exact reliable baseline in the near past. We will also check urine protein to creatinine ratio to rule out any significant proteinuria. 2. Hypercalcemia of undetermined etiology. Query Tums induced versus chlorthalidone induced versus some alternated neoplastic process. We will do PTH, 25-hydroxyvitamin D, 1,25-dihydroxyvitamin D, PTHRP, SPEP, UPEP, and serum free light chains. We will also stop chlorthalidone and Tums for now. After aggressive hydration if the calcium level still appears to be high, then we may need to use Pro-Calcitonin. The patient has significant metabolic alkalosis as well, which might be due to volume contraction versus milk-alkali syndrome. The patient continues to take significant Tums, but no significant milk injection. 3. Metabolic alkalosis, possibly volume contracted versus milk-alkali syndrome. The patient was on diuretic chlorthalidone with some Tums. We will slowly volume expand the patient and we will stop Tums and chlorthalidone and we will see how the patient's clinical status progresses. 4. Severe aortic stenosis, in possible need for a left heart catheterization. We will request Cardiology to hold of cardiac cath for couple of days and may be doing cardiac cath early next week after adequate volume resuscitation and removal of nephrotoxic insult at this point. 5. Diabetes, uncontrolled. A1c is still 9. The patient is on insulin, and we will defer that to the primary team. Thank you for allowing me to participate in the patient's care. We will follow up the patient's progress along with you. REGGIE VEGA MD /modl /[id number] d: 04/28/17 2303 t: 05/02/17 1502, CONSULTATION REPORT
[~2017-04-28 05:40] MED LIST changes: -CIPRO500 MG PO; -DRISDOL 5050000 UNIT PO; -FER-IRON DRO15 MG/ML PO; -FLOMAX0.4 MG PO; -LASIX40 MG PO; -MELATIN3 MG PO; -MILK OF MA400 MG/5 M PO; -ZAROXOLYN5 MG PO
[2017-04-28 07:02] LABS: BASOPHIL % 0.4 %; EOSINOPHIL # 0.2 K/uL (0.0-0.5); EOSINOPHIL % 2.2 %; HEMATOCRIT 34.4 % (37.0-53.0); HEMOGLOBIN 9.8 g/dL (11.0-16.0); IMMATURE GRANULOCYTE # 0.1 K/uL (0.0-0.3); IMMATURE GRANULOCYTE % 0.7 %; LYMPHOCYTE # 1.8 K/uL (0.8-4.0); LYMPHOCYTE % 16.5 %; MCH 19.6 pg (27.0-34.0); MCHC 28.5 gm/dL (32.0-36.5); MCV 68.7 fl (83.0-98.0); MONOCYTE % 8.7 %; MPV 10.1 fl (9.4-12.4); NEUTROPHIL # (ANC) 7.8 K/uL (1.4-9.0); NEUTROPHIL % 71.5 %; NRBC % 0 /100WBC (0-0.00); PLATELET COUNT 270 K/uL (150-450); RDW-CV 21.3 % (11.9-14.6); WBC 10.9 K/uL (4.0-11.0)
[2017-04-28 07:03] LABS: RBC 5.01 M/uL (3.50-5.50)
[2017-04-28 07:18] LABS: INR - (THERAPEUTIC) 0.99 (0.92-1.07); PROTIME 10.4 SECONDS (9.8-11.4); PTT 22 SECONDS (25-32)
[2017-04-28 07:19] LABS: ALBUMIN 3.3 gm/dL (3.5-5.0); ANION GAP 10.6 (10.0-19.0); CREATININE 2.4 mg/dL (0.6-1.3); POTASSIUM 3.6 mMol/L (3.7-5.1); TOTAL BILIRUBIN 0.9 mg/dL (0.0-1.5); TOTAL PROTEIN 7.1 g/dL (6.0-8.4)
[2017-04-28 07:21] LABS: CALCIUM 13.2 mg/dL (8.5-10.5)
[2017-04-28 13:45] LABS: ALBUMIN 3.2 gm/dL (3.5-5.0); ANION GAP 8.7 (10.0-19.0); CREATININE 2.2 mg/dL (0.6-1.3); PHOSPHORUS 3.3 mg/dL (2.5-4.9); POTASSIUM 3.7 mMol/L (3.7-5.1)
[2017-04-28 13:49] LABS: CALCIUM 12.4 mg/dL (8.5-10.5)
[2017-04-28 16:46] LABS: BILIRUBIN URINE NEGATIVE (NEGATIVE); BLOOD URINE NEGATIVE /UL (NEGATIVE); COLOR URINE YELLOW (YELLOW); GLUCOSE URINE NEGATIVE (NEGATIVE); KETONE URINE NEGATIVE (NEGATIVE); LEUKOCYTES URINE NEGATIVE /UL (NEGATIVE); NITRITE URINE NEGATIVE (NEGATIVE); PROTEIN URINE NEGATIVE (NEGATIVE); TURBIDITY URINE CLEAR (CLEAR); UROBILINOGEN URINE NORMAL (NORMAL)
[2017-04-28 19:19] LABS: ALBUMIN 3.2 gm/dL (3.5-5.0); ANION GAP 9.7 (10.0-19.0); CALCIUM 12.2 mg/dL (8.5-10.5); PHOSPHORUS 3.1 mg/dL (2.5-4.9); POTASSIUM 3.7 mMol/L (3.7-5.1)
[2017-04-29 01:45] LABS: ALBUMIN 2.8 gm/dL (3.5-5.0); ANION GAP 11.5 (10.0-19.0); CALCIUM 11.3 mg/dL (8.5-10.5); CREATININE 1.8 mg/dL (0.6-1.3); PHOSPHORUS 2.4 mg/dL (2.5-4.9); POTASSIUM 3.5 mMol/L (3.7-5.1)
[2017-04-29 07:49] LABS: ALBUMIN 3.2 gm/dL (3.5-5.0); ANION GAP 8.6 (10.0-19.0); CREATININE 1.7 mg/dL (0.6-1.3); PHOSPHORUS 2.2 mg/dL (2.5-4.9); POTASSIUM 3.6 mMol/L (3.7-5.1)
[2017-04-29 07:50] LABS: CALCIUM 11.1 mg/dL (8.5-10.5)
[2017-04-29 07:53] LABS: BASOPHIL # 0.1 K/uL (0.0-0.2); BASOPHIL % 0.5 %; EOSINOPHIL # 0.4 K/uL (0.0-0.5); EOSINOPHIL % 3.8 %; HEMOGLOBIN 9.6 g/dL (11.0-16.0); IMMATURE GRANULOCYTE # 0.1 K/uL (0.0-0.3); IMMATURE GRANULOCYTE % 1.1 %; LYMPHOCYTE % 21.4 %; MCH 19.3 pg (27.0-34.0); MCHC 27.4 gm/dL (32.0-36.5); MCV 70.3 fl (83.0-98.0); MONOCYTE % 10.5 %; MPV 10.1 fl (9.4-12.4); NEUTROPHIL # (ANC) 5.9 K/uL (1.4-9.0); NEUTROPHIL % 62.7 %; NRBC % 0 /100WBC (0-0.00); PLATELET COUNT 256 K/uL (150-450); RBC 4.98 M/uL (3.50-5.50); RDW-CV 21.5 % (11.9-14.6); WBC 9.4 K/uL (4.0-11.0)
[2017-04-29 19:20] LABS: ALBUMIN 2.9 gm/dL (3.5-5.0); ANION GAP 12.3 (10.0-19.0); CALCIUM 10.4 mg/dL (8.5-10.5); CREATININE 1.5 mg/dL (0.6-1.3); POTASSIUM 4.3 mMol/L (3.7-5.1)
[2017-04-29 19:21] LABS: PHOSPHORUS 1.5 mg/dL (2.5-4.9)
[2017-04-30 07:14] LABS: ALBUMIN 2.9 gm/dL (3.5-5.0); ANION GAP 9.4 (10.0-19.0); CREATININE 1.3 mg/dL (0.6-1.3); POTASSIUM 4.4 mMol/L (3.7-5.1)
[2017-04-30 07:16] LABS: PHOSPHORUS 1.6 mg/dL (2.5-4.9)
[2017-04-30 19:19] LABS: ANION GAP 10.1 (10.0-19.0); CALCIUM 9.6 mg/dL (8.5-10.5); CREATININE 1.3 mg/dL (0.6-1.3); POTASSIUM 4.1 mMol/L (3.7-5.1)
[2017-04-30 19:20] LABS: PHOSPHORUS 1.4 mg/dL (2.5-4.9)
[2017-05-01 03:36] LABS: BASOPHIL % 0.3 %; EOSINOPHIL # 0.3 K/uL (0.0-0.5); EOSINOPHIL % 2.4 %; HEMATOCRIT 29.2 % (37.0-53.0); HEMOGLOBIN 8.4 g/dL (11.0-16.0); IMMATURE GRANULOCYTE % 0.3 %; LYMPHOCYTE # 1.5 K/uL (0.8-4.0); LYMPHOCYTE % 12.6 %; MCH 19.6 pg (27.0-34.0); MCHC 28.8 gm/dL (32.0-36.5); MCV 68.2 fl (83.0-98.0); MONOCYTE # 1.3 K/uL (0.0-1.0); MONOCYTE % 10.5 %; NEUTROPHIL # (ANC) 8.8 K/uL (1.4-9.0); NEUTROPHIL % 73.9 %; NRBC % 0 /100WBC (0-0.00); PLATELET COUNT 216 K/uL (150-450); RBC 4.28 M/uL (3.50-5.50); RDW-CV 21.8 % (11.9-14.6); WBC 11.9 K/uL (4.0-11.0)
[2017-05-01 03:55] LABS: ALBUMIN 2.9 gm/dL (3.5-5.0); ANION GAP 9.8 (10.0-19.0); CALCIUM 9.4 mg/dL (8.5-10.5); CREATININE 1.3 mg/dL (0.6-1.3); POTASSIUM 3.8 mMol/L (3.7-5.1); TOTAL BILIRUBIN 0.8 mg/dL (0.0-1.5); TOTAL PROTEIN 6.2 g/dL (6.0-8.4)
[2017-05-01 19:22] LABS: ALBUMIN 2.9 gm/dL (3.5-5.0); CALCIUM 9.1 mg/dL (8.5-10.5); CREATININE 1.2 mg/dL (0.6-1.3); POTASSIUM 3.6 mMol/L (3.7-5.1)
[2017-05-01 19:23] LABS: ANION GAP 11.6 (10.0-19.0); PHOSPHORUS 1.8 mg/dL (2.5-4.9)
[2017-05-02 07:08] LABS: BASOPHIL % 0.2 %; EOSINOPHIL # 0.1 K/uL (0.0-0.5); EOSINOPHIL % 0.7 %; HEMATOCRIT 28.3 % (37.0-53.0); HEMOGLOBIN 8.2 g/dL (11.0-16.0); IMMATURE GRANULOCYTE # 0.1 K/uL (0.0-0.3); IMMATURE GRANULOCYTE % 0.7 %; LYMPHOCYTE # 1.4 K/uL (0.8-4.0); LYMPHOCYTE % 8.7 %; MCH 19.8 pg (27.0-34.0); MCV 68.4 fl (83.0-98.0); MONOCYTE # 1.4 K/uL (0.0-1.0); MONOCYTE % 8.7 %; MPV 9.9 fl (9.4-12.4); NEUTROPHIL # (ANC) 12.8 K/uL (1.4-9.0); NRBC % 0 /100WBC (0-0.00); PLATELET COUNT 196 K/uL (150-450); RBC 4.14 M/uL (3.50-5.50); RDW-CV 22.3 % (11.9-14.6); WBC 15.8 K/uL (4.0-11.0)
[2017-05-02 07:21] LABS: ALBUMIN 2.7 gm/dL (3.5-5.0); ANION GAP 12.4 (10.0-19.0); CALCIUM 8.6 mg/dL (8.5-10.5); CREATININE 1.3 mg/dL (0.6-1.3); PHOSPHORUS 2.5 mg/dL (2.5-4.9); POTASSIUM 3.4 mMol/L (3.7-5.1)
[2017-05-02 19:17] LABS: ALBUMIN 2.7 gm/dL (3.5-5.0); ANION GAP 11.2 (10.0-19.0); CALCIUM 8.5 mg/dL (8.5-10.5); CREATININE 1.3 mg/dL (0.6-1.3); POTASSIUM 3.2 mMol/L (3.7-5.1)
[2017-05-02 19:20] LABS: PHOSPHORUS 1.8 mg/dL (2.5-4.9)
[2017-05-03 07:01] LABS: BASOPHIL % 0.2 %; EOSINOPHIL # 0.1 K/uL (0.0-0.5); HEMATOCRIT 29.4 % (37.0-53.0); HEMOGLOBIN 8.5 g/dL (11.0-16.0); IMMATURE GRANULOCYTE # 0.1 K/uL (0.0-0.3); IMMATURE GRANULOCYTE % 0.5 %; LYMPHOCYTE # 0.7 K/uL (0.8-4.0); LYMPHOCYTE % 5.5 %; MCH 19.7 pg (27.0-34.0); MCHC 28.9 gm/dL (32.0-36.5); MCV 68.1 fl (83.0-98.0); MONOCYTE # 1.2 K/uL (0.0-1.0); MONOCYTE % 8.8 %; MPV 9.7 fl (9.4-12.4); NEUTROPHIL # (ANC) 11.1 K/uL (1.4-9.0); NRBC % 0 /100WBC (0-0.00); PLATELET COUNT 202 K/uL (150-450); RBC 4.32 M/uL (3.50-5.50); RDW-CV 22.2 % (11.9-14.6); WBC 13.3 K/uL (4.0-11.0)
[2017-05-03 07:18] LABS: ALBUMIN 2.6 gm/dL (3.5-5.0); ANION GAP 11.4 (10.0-19.0); CALCIUM 8.2 mg/dL (8.5-10.5); CREATININE 1.3 mg/dL (0.6-1.3); POTASSIUM 3.4 mMol/L (3.7-5.1)
[2017-05-03 07:25] LABS: PHOSPHORUS 1.9 mg/dL (2.5-4.9)
[2017-05-03 20:26] LABS: ALBUMIN 2.8 gm/dL (3.5-5.0); ANION GAP 13.3 (10.0-19.0); CALCIUM 8.1 mg/dL (8.5-10.5); CREATININE 1.5 mg/dL (0.6-1.3); POTASSIUM 3.3 mMol/L (3.7-5.1)
[2017-05-03 20:27] LABS: PHOSPHORUS 1.6 mg/dL (2.5-4.9)
[2017-05-04 07:14] LABS: TIME 24 h (())
[2017-05-04 07:18] LABS: HEMATOCRIT 29.4 % (37.0-53.0); HEMOGLOBIN 8.5 g/dL (11.0-16.0); MCH 19.7 pg (27.0-34.0); MCHC 28.9 gm/dL (32.0-36.5); MCV 68.2 fl (83.0-98.0); MPV 9.6 fl (9.4-12.4); PLATELET COUNT 195 K/uL (150-450); RBC 4.31 M/uL (3.50-5.50); RDW-CV 22.5 % (11.9-14.6)
[2017-05-04 07:31] LABS: ALBUMIN 2.5 gm/dL (3.5-5.0); ANION GAP 13.1 (10.0-19.0); CALCIUM 8.2 mg/dL (8.5-10.5); CREATININE 1.2 mg/dL (0.6-1.3); PHOSPHORUS 2.2 mg/dL (2.5-4.9); POTASSIUM 3.1 mMol/L (3.7-5.1)
[2017-05-04 08:27] LABS: LYMPHOCYTE # 1.8 K/uL (0.8-4.0); LYMPHOCYTE % 20 %; MONOCYTE # 0.5 K/uL (0.0-1.0); SEGMENTED NEUTROPHIL % 67 %
[2017-05-04 19:30] LABS: ALBUMIN 2.6 gm/dL (3.5-5.0); ANION GAP 13.5 (10.0-19.0); CALCIUM 7.9 mg/dL (8.5-10.5); CREATININE 1.2 mg/dL (0.6-1.3); POTASSIUM 3.5 mMol/L (3.7-5.1)
[2017-05-04 19:32] LABS: PHOSPHORUS 1.6 mg/dL (2.5-4.9)
[2017-05-05 07:05] LABS: BASOPHIL % 0.2 %; EOSINOPHIL # 0.2 K/uL (0.0-0.5); EOSINOPHIL % 1.6 %; HEMATOCRIT 29.3 % (37.0-53.0); HEMOGLOBIN 8.4 g/dL (11.0-16.0); IMMATURE GRANULOCYTE # 0.1 K/uL (0.0-0.3); IMMATURE GRANULOCYTE % 0.5 %; LYMPHOCYTE # 0.8 K/uL (0.8-4.0); LYMPHOCYTE % 8.3 %; MCH 19.7 pg (27.0-34.0); MCHC 28.7 gm/dL (32.0-36.5); MCV 68.8 fl (83.0-98.0); MONOCYTE # 1.3 K/uL (0.0-1.0); MONOCYTE % 12.7 %; MPV 10.1 fl (9.4-12.4); NEUTROPHIL # (ANC) 7.7 K/uL (1.4-9.0); NEUTROPHIL % 76.7 %; NRBC % 0 /100WBC (0-0.00); PLATELET COUNT 194 K/uL (150-450); RBC 4.26 M/uL (3.50-5.50); RDW-CV 22.9 % (11.9-14.6); WBC 10.1 K/uL (4.0-11.0)
[2017-05-05 07:21] LABS: ALBUMIN 2.6 gm/dL (3.5-5.0); ANION GAP 12.1 (10.0-19.0); CALCIUM 7.9 mg/dL (8.5-10.5); CREATININE 1.3 mg/dL (0.6-1.3); MAGNESIUM 2.1 mg/dL (1.8-2.6); POTASSIUM 3.1 mMol/L (3.7-5.1)
[2017-05-05 10:49] LABS: VOLUME 1170 mL (())
[2017-05-05 19:25] LABS: ALBUMIN 2.5 gm/dL (3.5-5.0); ANION GAP 14.5 (10.0-19.0); CREATININE 1.6 mg/dL (0.6-1.3); POTASSIUM 3.5 mMol/L (3.7-5.1)
[2017-05-05 19:26] LABS: CALCIUM 7.4 mg/dL (8.5-10.5); PHOSPHORUS 0.8 mg/dL (2.5-4.9)
[2017-05-06 19:21] LABS: ALBUMIN 2.8 gm/dL (3.5-5.0); ANION GAP 10.4 (10.0-19.0); CREATININE 1.4 mg/dL (0.6-1.3); POTASSIUM 3.4 mMol/L (3.7-5.1)
[2017-05-06 19:26] LABS: CALCIUM 7.4 mg/dL (8.5-10.5); PHOSPHORUS 1.4 mg/dL (2.5-4.9)
[2017-05-07 08:46] LABS: BASOPHIL % 0.3 %; EOSINOPHIL # 0.3 K/uL (0.0-0.5); EOSINOPHIL % 3.7 %; HEMATOCRIT 27.6 % (37.0-53.0); IMMATURE GRANULOCYTE # 0.1 K/uL (0.0-0.3); IMMATURE GRANULOCYTE % 0.7 %; LYMPHOCYTE # 1.1 K/uL (0.8-4.0); LYMPHOCYTE % 15.6 %; MCH 19.6 pg (27.0-34.0); MCHC 28.3 gm/dL (32.0-36.5); MCV 69.3 fl (83.0-98.0); MONOCYTE # 0.7 K/uL (0.0-1.0); MONOCYTE % 10.4 %; MPV 10.2 fl (9.4-12.4); NEUTROPHIL # (ANC) 4.9 K/uL (1.4-9.0); NEUTROPHIL % 69.3 %; NRBC % 0 /100WBC (0-0.00); PLATELET COUNT 188 K/uL (150-450); RBC 3.98 M/uL (3.50-5.50); RDW-CV 22.9 % (11.9-14.6)
[2017-05-07 08:55] LABS: HEMOGLOBIN 7.8 g/dL (11.0-16.0)
[2017-05-07 09:01] LABS: ALBUMIN 3.3 gm/dL (3.5-5.0); ANION GAP 10.5 (10.0-19.0); CREATININE 1.3 mg/dL (0.6-1.3); POTASSIUM 3.5 mMol/L (3.7-5.1)
[2017-05-07 09:04] LABS: CALCIUM 7.2 mg/dL (8.5-10.5); PHOSPHORUS 1.7 mg/dL (2.5-4.9)
[2017-05-07 19:34] LABS: ANION GAP 10.5 (10.0-19.0); CALCIUM 7.3 mg/dL (8.5-10.5); CREATININE 1.4 mg/dL (0.6-1.3); PHOSPHORUS 1.2 mg/dL (2.5-4.9); POTASSIUM 3.5 mMol/L (3.7-5.1)
[2017-05-08 07:34] LABS: BASOPHIL % 0.3 %; EOSINOPHIL # 0.3 K/uL (0.0-0.5); EOSINOPHIL % 3.3 %; HEMATOCRIT 26.3 % (37.0-53.0); IMMATURE GRANULOCYTE # 0.1 K/uL (0.0-0.3); IMMATURE GRANULOCYTE % 1.3 %; LYMPHOCYTE # 1.3 K/uL (0.8-4.0); LYMPHOCYTE % 17.1 %; MCH 19.7 pg (27.0-34.0); MCHC 28.5 gm/dL (32.0-36.5); MONOCYTE # 0.8 K/uL (0.0-1.0); MONOCYTE % 10.6 %; NEUTROPHIL # (ANC) 5.2 K/uL (1.4-9.0); NEUTROPHIL % 67.4 %; NRBC % 0 /100WBC (0-0.00); PLATELET COUNT 188 K/uL (150-450); RBC 3.81 M/uL (3.50-5.50); RDW-CV 23.1 % (11.9-14.6); WBC 7.7 K/uL (4.0-11.0)
[2017-05-08 07:35] LABS: HEMOGLOBIN 7.5 g/dL (11.0-16.0)
[2017-05-08 07:58] LABS: ALBUMIN 2.8 gm/dL (3.5-5.0); ANION GAP 11.6 (10.0-19.0); CREATININE 1.4 mg/dL (0.6-1.3); POTASSIUM 3.6 mMol/L (3.7-5.1)
[2017-05-08 07:59] LABS: CALCIUM 7.1 mg/dL (8.5-10.5); PHOSPHORUS 1.4 mg/dL (2.5-4.9)
[2017-05-08 15:59] LABS: PROTEIN [CALC] 456 mg/24h (())
[2017-05-08 19:13] LABS: ALBUMIN 3.1 gm/dL (3.5-5.0); ANION GAP 10.7 (10.0-19.0); CREATININE 1.4 mg/dL (0.6-1.3); POTASSIUM 3.7 mMol/L (3.7-5.1)
[2017-05-08 19:16] LABS: CALCIUM 7.3 mg/dL (8.5-10.5); PHOSPHORUS 1.1 mg/dL (2.5-4.9)
[2017-05-09 07:25] LABS: ALBUMIN 2.8 gm/dL (3.5-5.0); ANION GAP 9.4 (10.0-19.0); CALCIUM 7.1 mg/dL (8.5-10.5); CREATININE 1.4 mg/dL (0.6-1.3); PHOSPHORUS 1.4 mg/dL (2.5-4.9); POTASSIUM 3.4 mMol/L (3.7-5.1)
[2017-05-09 19:22] LABS: ALBUMIN 3.6 gm/dL (3.5-5.0); CREATININE 1.6 mg/dL (0.6-1.3)
[2017-05-09 19:23] LABS: CALCIUM 7.3 mg/dL (8.5-10.5); PHOSPHORUS 1.4 mg/dL (2.5-4.9)
[2017-05-10 04:43] LABS: ALBUMIN 3.3 gm/dL (3.5-5.0); ANION GAP 11.4 (10.0-19.0); CALCIUM 7.4 mg/dL (8.5-10.5); CREATININE 1.6 mg/dL (0.6-1.3); PHOSPHORUS 1.7 mg/dL (2.5-4.9); POTASSIUM 3.4 mMol/L (3.7-5.1)
[2017-05-10 19:07] LABS: ALBUMIN 3.6 gm/dL (3.5-5.0); ANION GAP 9.7 (10.0-19.0); CALCIUM 7.6 mg/dL (8.5-10.5); CREATININE 1.9 mg/dL (0.6-1.3); POTASSIUM 3.7 mMol/L (3.7-5.1)
[2017-05-11 07:47] LABS: ALBUMIN 3.3 gm/dL (3.5-5.0); ANION GAP 10.1 (10.0-19.0); CREATININE 1.7 mg/dL (0.6-1.3); PHOSPHORUS 2.1 mg/dL (2.5-4.9); POTASSIUM 4.1 mMol/L (3.7-5.1)
[2017-05-11 07:48] LABS: CALCIUM 7.4 mg/dL (8.5-10.5)
[2017-05-11] MEDS ORDERED: CIPRO500 MG PO (13:44)
[2017-05-11] MEDS ORDERED: LASIX40 MG PO (13:46)
[2017-05-11] MEDS ORDERED: MELATIN3 MG PO (13:50)
[2017-05-11] MEDS ORDERED: ZAROXOLYN5 MG PO (13:51)
[2017-05-11] MEDS ORDERED: FLOMAX0.4 MG PO (13:57)
[2017-05-11] MEDS ORDERED: DRISDOL 5050000 UNIT PO (14:03)
[2017-05-11] MEDS ORDERED: FER-IRON DRO15 MG/ML PO (14:05)
[2017-05-11] MEDS ORDERED: MILK OF MA400 MG/5 M PO (14:08)
== END 2017-05-11 15:00 | disposition disaster alternative care site (69) | DRG 682 ==
LOC: GSDC 05:40 → GPCU 05:40 → GPOC 06:00 → EDSTATUS 06:00 → GPCU 11:07 → GSDC 13:30 → GPCU 13:30
PROVIDERS: Family Medicine; Internal Medicine; Internal Medicine Interventional Cardiology; Internal Medicine Nephrology; Physician Assistant; ADMIT Internal Medicine
DX: N17.9 Acute kidney failure, unspecified (principal); J96.01 Acute respiratory failure with hypoxia; E87.3 Alkalosis; I13.0 Hypertensive heart and chronic kidney disease with heart failure and stage 1 through stage 4 chronic kidney disease, or unspecified chronic kidney disease; I50.30 Unspecified diastolic (congestive) heart failure; N13.8 Other obstructive and reflux uropathy; C90.00 Multiple myeloma not having achieved remission; N39.0 Urinary tract infection, site not specified; E11.22 Type 2 diabetes mellitus with diabetic chronic kidney disease; D63.1 Anemia in chronic kidney disease; N18.3 Chronic kidney disease, stage 3 (moderate); I35.0 Nonrheumatic aortic (valve) stenosis; I25.10 Atherosclerotic heart disease of native coronary artery without angina pectoris; E86.0 Dehydration; E87.6 Hypokalemia; N40.1 Benign prostatic hyperplasia with lower urinary tract symptoms; R39.14 Feeling of incomplete bladder emptying; R39.15 Urgency of urination; R35.0 Frequency of micturition; R35.1 Nocturia; R39.12 Poor urinary stream; Z89.511 Acquired absence of right leg below knee; I25.2 Old myocardial infarction; I70.201 Unspecified atherosclerosis of native arteries of extremities, right leg; Z87.891 Personal history of nicotine dependence; E66.9 Obesity, unspecified; Z68.35 Body mass index [BMI] 35.0-35.9, adult; D50.9 Iron deficiency anemia, unspecified; N35.9 Urethral stricture, unspecified; B95.2 Enterococcus as the cause of diseases classified elsewhere; D47.2 Monoclonal gammopathy; Z79.4 Long term (current) use of insulin
CPT/HCPCS: C1769; J1644; J1940; J2001; J2250; J3010; J3480; J7030; J7050; J7060; P9047; Q9967

== ENCOUNTER → 2017-05-19 | Outpatient (CLI) | payer MEDICARE, OTHER ==
[~2017-05-19] MED LIST changes: +CIPRO500 MG PO; +DRISDOL 5050000 UNIT PO; +FER-IRON DRO15 MG/ML PO; +FLOMAX0.4 MG PO; +LASIX40 MG PO; +MELATIN3 MG PO; +MILK OF MA400 MG/5 M PO; +ZAROXOLYN5 MG PO
== END ==
LOC: LGSMG 11:30
DX: N17.9 Acute kidney failure, unspecified (principal)

== ENCOUNTER → 2017-06-06 | Outpatient (CLI) | payer MEDICARE, OTHER | END | disposition disaster alternative care site (69) | LOC: GKIC 11:14 | DX: C90.00 Multiple myeloma not having achieved remission (principal); D50.9 Iron deficiency anemia, unspecified | CPT/HCPCS: A9552 ==

== ENCOUNTER → 2017-06-12 | Outpatient (CLI) | payer MEDICARE, OTHER | END | disposition disaster alternative care site (69) | LOC: GRAD 10:19 | DX: D47.2 Monoclonal gammopathy (principal); D50.9 Iron deficiency anemia, unspecified; M16.0 Bilateral primary osteoarthritis of hip; M19.012 Primary osteoarthritis, left shoulder; M19.011 Primary osteoarthritis, right shoulder ==

== ENCOUNTER → 2017-06-20 | Outpatient (CLI) | payer MEDICARE, OTHER ==
--- NOTE | ~2017-06-20 | PUL ---
PATIENT'S NAME: JORGE L [facility] AGE: 67 Y [address] ROOM: [place] [id number] LOCATION: [facility] ADMIT DATE: 06/20/2017 Pulmonary DISCHARGE DATE: FAMILY PHYSICIAN: Blake Taylor MD ATTENDING PHYSICIAN: Leslee Frank NAME OF PROCEDURE: Pulmonary Function Test DATE OF PROCEDURE: June 20, 2017 TECH: AMINA Bonilla REASON FOR EXAM: Pre-surgical evaluation RESULTS: 1. FVC was 3.79 liters which is 85% of predicted and normal, FEV1 was 2.73 liters which is 83% of predicted and normal, and FEV1/FVC was 72% and normal. The flow volume curve did not reveal any significant airflow limitation. After bronchodilator administration FVC increased to 3.89 liters which is a 3% increase and FEV1 increased to 3.1 liters which is a 14% increase. FEV1/FVC was 80%. 2. DLCO was 19 with an adjusted DLCO of 21.7 which is 82% of predicted and normal. 3. Total lung capacity was 5.59 liters which is 86% of predicted and normal, and residual volume was 1.57 liters which is 62% of predicted and low. PHYSICIAN INTERPRETATION: The patient has no airflow limitation but has a positive bronchodilator response. His diffusion capacity is normal. There is no evidence of restrictive lung disease. MD GILMA DE PAZ/son /[id number] dtt: 06/22/17 0854 , IRIS RUIZ dtd: 06/21/17 1410
== END | disposition disaster alternative care site (69) ==
LOC: GRTH 12:32
DX: I35.0 Nonrheumatic aortic (valve) stenosis (principal)